=== PATIENT | male | born 1950 | race Caucasian/White ===

== ENCOUNTER 2018-08-15 18:10 | Emergency (ER) | payer MEDICARE, BC ==
[2018-08-15] MEDS ORDERED: Diphtheria,Pertussis(Acell),Tetanus Vaccine 0.5 ML SDV IM ONE (18:53)
--- NOTE | 2018-08-15 19:00 | EDM.PDOC ---
<Karan,Cele - Last Filed: 08/15/18 19:13> ED HPI GENERAL MEDICAL PROBLEM - General Chief Complaint: Laceration Stated Complaint: CUT FINGER Time Seen by Provider: 08/15/18 18:45 Source of Information: Reports: Patient History Limitations: Reports: No Limitations - History of Present Illness INITIAL COMMENTS - FREE TEXT/NARRATIVE: Pt comes in for laceration repair of index finger on right hand. Pt helping with a furnace repair and inadvertency sliced his finger. Unsure of last tetanus and his immunizations are not available in [facility]. Onset: Today, Sudden Onset Date: 08/15/18 Onset Time: 17:30 Duration: Hour(s): Location: Reports: Upper Extremity, Right Quality: Reports: Throbbing Severity: Mild Improves with: Reports: Rest Worsens with: Reports: None Context: Reports: Trauma Associated Symptoms: Reports: No Other Symptoms - Related Data Allergies Allergy/AdvReac Type Severity Reaction Status Date / Time Penicillins Allergy Severe Anaphylactic Verified 08/15/18 18:37 Shock Home Meds: Home Meds Aspirin [Prince Chewable] 81 mg PO DAILY 10/27/13 [History] Carvedilol [Coreg] 6.25 mg PO BID 10/27/13 [History] Flaxseed [Flaxseed Oil] 1,000 mg PO DAILY 10/27/13 [History] Ibuprofen [Wal-Profen] 200 mg PO DAILY 10/27/13 [History] Lisinopril 5 mg PO DAILY 10/27/13 [History] Multivitamin with Minerals [Multiple Vitamin] 1 tab PO DAILY 10/27/13 [History] [place]-3 Fatty Acids/Fish Oil [Fish Oil 1,200 mg Softgel] 1 each PO DAILY [History] Rosuvastatin [Crestor] 5 mg PO DAILY 10/27/13 [History] Past Medical History - Past Health History Medical/Surgical History: Denies Medical/Surgical History HEENT History: Reports: Impaired Vision Cardiovascular History: Reports: Stents Other Cardiovascular History: 2004 Neurological History: Reports: Concussion Dermatologic History: Reports: Melanoma - Infectious Disease History Infectious Disease History: Reports: Chicken Pox, Measles, Mumps - Past Surgical History Head Surgeries/Procedures: Reports: None HEENT Surgical History: Reports: Adenoidectomy, Tonsillectomy Cardiovascular Surgical History: Reports: None GI Surgical History: Reports: Hernia, Inguinal Neurological Surgical History: Reports: None Dermatological Surgical History: Reports: Skin Biopsy Social & Family History - Tobacco Use Smoking Status *Q: Never Smoker Second Hand Smoke Exposure: No - Caffeine Use Caffeine Use: Reports: None - Recreational Drug Use Recreational Drug Use: No ED ROS GENERAL - Review of Systems Review Of Systems: See Below Constitutional: Reports: No Symptoms HEENT: Reports: No Symptoms Respiratory: Reports: No Symptoms Cardiovascular: Reports: No Symptoms Musculoskeletal: Reports: No Symptoms Skin: Reports: No Symptoms, Wound Neurological: Reports: No Symptoms Psychiatric: Reports: No Symptoms ED EXAM, SKIN/RASH Exam: See Below Text/Narrative:: Alert and oriented male with injury to right index finger. Approx 2-3 cm laceration. Pt was able to stop bleeding prior to arrival. Site assessed with Officer and agreement to repair laceration with sutures Exam Limited By: No Limitations General Appearance: Alert, WD/WN Peripheral Pulses: 2+: Radial (L), Radial (R) Extremities: Normal Range of Motion, Normal Capillary Refill, Other (pt with full ROM in right index finger denies numbness or ) Neurological: Alert, Oriented, CN II-XII Intact, Normal Cognition, Normal Reflexes, No Motor/Sensory Deficits Skin: Warm, Dry, Normal Color, Wound/Incision Location, Skin: Upper Extremity, Right ED SKIN PROCEDURES - Laceration/Wound Repair Right Digit - 2nd (Index) Lac/Wound length In cm: 2.5 (cm) Appearance: Clean Distal NVT: Neuro & Vascular Intact, No Tendon Injury Anesthetic Type: Digital Local Anesthesia - Lidocaine (Xylocaine): 1% Plain Local Anesthetic Volume: 2cc Skin Prep: Chlorhexidine (Hibiciens) Saline Irrigation (cc's): 30 Exploration/Debridement/Repair: Wound Explored, In a Bloodless Field, Explored to Base, No Foreign Material Found Closed with: Sutures Suture Size: 3-0 # of Sutures: 5 Suture Type: Prolene Course - Vital Signs Last Recorded V/S: Last Vital Signs Temp 98.0 F 08/15/18 18:39 Pulse 67 08/15/18 18:39 Resp 16 08/15/18 18:39 BP 142/79 H 08/15/18 18:39 Pulse Ox 94 L 08/15/18 18:39 - Orders/Labs/Meds Orders: Active Orders 24 hr Category Date Time Status Vaccines to be Administered [RC] PER UNIT ROUTINE Care 08/15/18 18:53 Active Meds: Medications Discontinued Medications Generic Name Dose Route Start Last Admin Trade Name Ryland PRN Reason Stop Dose Admin Bacitracin 1 dose 08/15/18 19:06 08/15/18 19:27 Bacitracin Oint 1 Gm TOP 08/15/18 19:07 1 dose ONETIME ONE Administration Diphtheria/Tetanus/Acell Pertussis 0.5 ml 08/15/18 18:53 08/15/18 19:10 Adacel IM 08/15/18 18:54 0.5 ml .ONCE ONE Administration Lidocaine HCl 5 ml 08/15/18 18:51 08/15/18 19:08 Xylocaine-Mpf 1% INJECT 08/15/18 18:52 5 ml ONETIME ONE Administration - Re-Assessments/Exams Free Text/Narrative Re-Assessment/Exam: 08/15/18 19:53 Pt able to move extremity without difficulty after sutures in place. Pt has good feeling at the tip. Bacitracin applied to the wound and covered with gauze per nursing staff. Pt instructed to return in 7-10 days for suture removal. Educated to sxs of infection to watch for and report Departure - Departure Disposition: Home, Self-Care 01 Condition: Good Clinical Impression: Laceration, Broken skin - Discharge Information *PRESCRIPTION DRUG MONITORING PROGRAM REVIEWED*: No *COPY OF PRESCRIPTION DRUG MONITORING REPORT IN PATIENT LAN: No Instructions: Laceration Care, Adult, [id number] Referrals: PCP,None [Primary Care Provider] - Forms: ED Department Discharge Additional Instructions: Keep elevated to prevent throbbing and or swelling of finger. Keep covered for the first 24 hours. Return to clinic in 7-10 days for suture removal <Marc Tabor - Last Filed: 08/15/18 20:01> ED EXAM, SKIN/RASH Text/Narrative:: Agree with above exam ED SKIN PROCEDURES - Laceration/Wound Repair Right Digit - 2nd (Index) Sterile Dressing Applied: Nurse Tetanus Status Addressed: Yes Complications: No Departure - Departure Time of Disposition: 20:01 Condition: Good - Assessment/Plan Plan: Assessment Acuity = acute Site and laterality = 2.5 cm laceration right index finger Etiology = secondary to trauma Manifestations = none Location of injury = Home Lab values = none Plan Follow wound care instruction sheet, follow-up with primary care or return to the emergency department for suture removal in 10 days tetanus updated today This note was dictated using [employer] voice recognition software please call with any questions on syntax or grammar.
[2018-08-15] MEDS ORDERED: Bacitracin Oint 1 GM U/D Packet TOP ONE (19:06)
== END 2018-08-15 20:10 | disposition home or self-care (01) ==
LOC: JP.ED 18:10
DX: S61.210A Laceration without foreign body of right index finger without damage to nail, initial encounter (principal); Z23 Encounter for immunization; Z79.82 Long term (current) use of aspirin; Z79.899 Other long term (current) drug therapy; Z98.890 Other specified postprocedural states; Z95.5 Presence of coronary angioplasty implant and graft; Z88.0 Allergy status to penicillin; W26.8XXA Contact with other sharp object(s), not elsewhere classified, initial encounter
CPT/HCPCS: 12001; 90471; 90715; 99282; 99283-25; J2001

== ENCOUNTER 2019-05-12 19:20 | Emergency (ER) | payer MEDICARE, BC ==
--- NOTE | 2019-05-12 19:48 | EDM.PDOC ---
ED HPI GENERAL MEDICAL PROBLEM - General Chief Complaint: Laceration Stated Complaint: HIT IN THE HEAD Time Seen by Provider: 05/12/19 19:40 Source of Information: Reports: Patient, Old Records History Limitations: Reports: No Limitations - History of Present Illness INITIAL COMMENTS - FREE TEXT/NARRATIVE: 68 yo male here with a forehead laceration that resulted from a drill falling out of a deer stand that he was climbing which hit him in that area. No LOC. No PEARSON or dizziness. No neck pain. No nausea. Onset: Today Onset Date: 05/12/19 Onset Time: 15:00 Duration: Hour(s): (5), Constant Location: Reports: Face Quality: Reports: Dull Severity: Mild Improves with: Reports: None Worsens with: Reports: None Context: Reports: Trauma Associated Symptoms: Reports: No Other Symptoms Treatments STORES ASSISTANT: Reports: Dressing(s) Face/Facial Pain Score (Numeric/FACES): 1 - Related Data Allergies Allergy/AdvReac Type Severity Reaction Status Date / Time Penicillins Allergy Severe Anaphylactic Verified 05/12/19 19:40 Shock Home Meds: Home Meds Aspirin [Prince Chewable] 81 mg PO DAILY 10/27/13 [History] Flaxseed [Flaxseed Oil] 1,000 mg PO DAILY 10/27/13 [History] Lisinopril 5 mg PO DAILY 10/27/13 [History] Multivitamin with Minerals [Multiple Vitamin] 1 tab PO DAILY 10/27/13 [History] [place]-3 Fatty Acids/Fish Oil [Fish Oil 1,200 mg Softgel] 1 each PO DAILY [History] Rosuvastatin [Crestor] 5 mg PO DAILY 10/27/13 [History] Carvedilol 1 tab PO BID 05/12/19 [History] Past Medical History - Past Health History Medical/Surgical History: Denies Medical/Surgical History HEENT History: Reports: Impaired Vision Cardiovascular History: Reports: Stents Other Cardiovascular History: 2004 Neurological History: Reports: Concussion Dermatologic History: Reports: Melanoma - Infectious Disease History Infectious Disease History: Reports: Chicken Pox, Measles, Mumps - Past Surgical History Head Surgeries/Procedures: Reports: None HEENT Surgical History: Reports: Adenoidectomy, Tonsillectomy Cardiovascular Surgical History: Reports: None GI Surgical History: Reports: Hernia, Inguinal Neurological Surgical History: Reports: None Dermatological Surgical History: Reports: Skin Biopsy Social & Family History - Caffeine Use Caffeine Use: Reports: None ED ROS GENERAL - Review of Systems Review Of Systems: ROS reveals no pertinent complaints other than HPI. Constitutional: Reports: No Symptoms HEENT: Reports: No Symptoms Skin: Reports: Wound (R mid forehead laceration.) Neurological: Reports: No Symptoms. Denies: Confusion, Dizziness, Headache, Numbness, Trouble Speaking, Difficulty Walking, Weakness, Change in Speech, Gait Disturbance ED EXAM, SKIN/RASH Exam: See Below Exam Limited By: No Limitations General Appearance: Alert, WD/WN, No Apparent Distress Eye Exam: Bilateral Eye: Normal Inspection Ears: Normal External Exam, Normal Canal, Hearing Grossly Normal Nose: Normal Inspection, No Blood Throat/Mouth: Normal Inspection, Normal Lips, Normal Oropharynx, Normal Voice, No Airway Compromise Head: Normocephalic, Facial Tenderness (over forehead lac) Neck: Normal Inspection, Supple, Non-Tender Extremities: Normal Inspection Neurological: Alert, Oriented, CN II-XII Intact, Normal Cognition, No Motor/ Sensory Deficits Psychiatric: Normal Affect, Normal Mood Skin: Warm, Dry, Normal Color, No Rash, Wound/Incision (2 cm partial thickness linear laceration to the R mid forehead.) Location, Skin: Face Characteristics: Linear Associated features: Tenderness. No: Swelling, Induration ED SKIN PROCEDURES - Laceration/Wound Repair Right Middle Forehead Appearance: Subcutaneous, Linear, Clean Distal NVT: Neuro & Vascular Intact Skin Prep: Saline Closed with: Dermabond Lac/Wound length In cm: 2.4 Drain Placement: No Sterile Dressing Applied: None Tetanus Status Addressed: Yes Complications: No Course - Vital Signs Last Recorded V/S: Last Vital Signs Temp 35.8 C 05/12/19 19:41 Pulse 66 05/12/19 19:41 Resp 16 05/12/19 19:41 BP 141/84 H 05/12/19 19:54 Pulse Ox 100 05/12/19 19:41 Departure - Departure Time of Disposition: 20:05 Disposition: Home, Self-Care 01 Condition: Good Clinical Impression: Forehead laceration Qualifiers: Encounter type: initial encounter Qualified Code(s): S01.81XA - Laceration without foreign body of other part of head, initial encounter - Discharge Information *PRESCRIPTION DRUG MONITORING PROGRAM REVIEWED*: No *COPY OF PRESCRIPTION DRUG MONITORING REPORT IN PATIENT LAN: No Referrals: PCP,None [Primary Care Provider] - Forms: ED Department Discharge Additional Instructions: Allow Dermabond to wear off. Acetaminophen as needed for pain relief. Recheck for signs of infection.
== END 2019-05-12 20:15 | disposition home or self-care (01) ==
LOC: JP.ED 19:20
DX: S01.81XA Laceration without foreign body of other part of head, initial encounter (principal); Z88.0 Allergy status to penicillin; Z79.82 Long term (current) use of aspirin; W20.8XXA Other cause of strike by thrown, projected or falling object, initial encounter; Y93.39 Activity, other involving climbing, rappelling and jumping off
CPT/HCPCS: 12011; 99282-25

== ENCOUNTER 2020-04-27 17:00 | Emergency (ER) | payer MEDICARE, BC ==
--- NOTE | 2020-04-27 17:32 | EDM.PDOC ---
ED HPI GENERAL MEDICAL PROBLEM - General Chief Complaint: General Stated Complaint: DIZZY Time Seen by Provider: 04/27/20 17:35 Source of Information: Reports: Patient, Old Records, RN History Limitations: Reports: No Limitations - History of Present Illness INITIAL COMMENTS - FREE TEXT/NARRATIVE: 69 yo male here after a brief dizzy spell that he experienced when he bent over and got up again. He denies vertigo with this. He also has noticed more GALLO recently. No fever. No cough. Had a mild, brief tightness in his chest this afternoon. He tried to call his doctor, but he was already gone for the day. He had an exercise stress test this summer in which he did well per his report. No cardiac hx. Is worried most about his heart. Says his BP is normally well controlled. No calf pain or LE edema. Has not had as much energy lately as usual. Onset: Today (dizziness and chest tightness) Onset Date: 04/27/20 Duration: Minutes:, Resolved Prior to Arrival Location: Reports: Chest Quality: Reports: Other (mild heaviness) Severity: Mild Improves with: Reports: Other (time, was very brief) Worsens with: Reports: Other (unknown) Context: Reports: Other (See HPI) Associated Symptoms: Reports: Other (chest mild sx's and dizziness not at the same time) Treatments MAGNETIC RESONANCE IMAGING COORDINATOR: Reports: Other (see below) (none) - Related Data Allergies Allergy/AdvReac Type Severity Reaction Status Date / Time Penicillins Allergy Severe Anaphylactic Verified 04/27/20 17:56 Shock Home Meds: Home Meds Aspirin [Prince Chewable] 81 mg PO DAILY 10/27/13 [History] Flaxseed [Flaxseed Oil] 1,000 mg PO DAILY 10/27/13 [History] Lisinopril 5 mg PO DAILY 10/27/13 [History] Multivitamin with Minerals [Multiple Vitamin] 1 tab PO DAILY 10/27/13 [History] [place]-3 Fatty Acids/Fish Oil [Fish Oil 1,200 mg Softgel] 1 each PO DAILY 10/27/13 [History] Rosuvastatin [Crestor] 5 mg PO BEDTIME 10/27/13 [History] carvediloL [Carvedilol] 1 tab PO BID 05/12/19 [History] Past Medical History - Past Health History Medical/Surgical History: Denies Medical/Surgical History HEENT History: Reports: Impaired Vision Cardiovascular History: Reports: Stents Other Cardiovascular History: 2004 Neurological History: Reports: Concussion Dermatologic History: Reports: Melanoma - Infectious Disease History Infectious Disease History: Reports: Chicken Pox, Measles, Mumps - Past Surgical History Head Surgeries/Procedures: Reports: None HEENT Surgical History: Reports: Adenoidectomy, Tonsillectomy Cardiovascular Surgical History: Reports: None GI Surgical History: Reports: Hernia, Inguinal Neurological Surgical History: Reports: None Dermatological Surgical History: Reports: Skin Biopsy Social & Family History - Family History Family Medical History: Noncontributory - Caffeine Use Caffeine Use: Reports: None ED ROS GENERAL - Review of Systems Review Of Systems: See Below Constitutional: Reports: No Symptoms HEENT: Reports: No Symptoms Respiratory: Denies: Shortness of Breath, Pleuritic Chest Pain, Cough, Sputum, Hemoptysis Cardiovascular: Reports: Chest Pain (fleeting earlier today), Dyspnea on Exertion, Lightheadedness (when he stood up after bending over). Denies: Blood Pressure Problem, Edema, Palpitations Endocrine: Reports: No Symptoms GI/Abdominal: Reports: No Symptoms : Reports: No Symptoms Musculoskeletal: Reports: No Symptoms Skin: Reports: No Symptoms Neurological: Reports: No Symptoms Psychiatric: Reports: No Symptoms ED EXAM, GENERAL - Physical Exam Exam: See Below Exam Limited By: No Limitations General Appearance: Alert, WD/WN, No Apparent Distress Eye Exam: Bilateral Eye: Normal Inspection Ears: Normal External Exam, Normal Canal, Hearing Grossly Normal, Normal TMs Ear Exam: Bilateral Ear: Auricle Normal, Canal Normal, TM normal Nose: Normal Inspection, No Blood Throat/Mouth: Normal Inspection, Normal Lips, Normal Oropharynx, Normal Voice, No Airway Compromise Head: Atraumatic, Normocephalic Neck: Normal Inspection Respiratory/Chest: No Respiratory Distress, Lungs Clear, Normal Breath Sounds, No Accessory Muscle Use, Chest Non-Tender. No: Respiratory Distress, Decreased Breath Sounds, Crackles, Rales, Rhonchi, Wheezing, Accessory Muscle Use, Retractions, Prolonged Expiration Cardiovascular: Regular Rate, Rhythm, No Edema, No Murmur. No: Tachycardia, Irregularly Irregular GI/Abdominal: Normal Bowel Sounds, Soft, Non-Tender, No Distention Back Exam: Normal Inspection. No: CVA Tenderness (R), CVA Tenderness (L) Extremities: Normal Inspection, Normal Range of Motion, Non-Tender, No Pedal Edema Neurological: Alert, Oriented, CN II-XII Intact, Normal Cognition, No Motor/Sensory Deficits Psychiatric: Normal Affect, Normal Mood Skin Exam: Warm, Dry, Intact, Normal Color, No Rash EKG INTERPRETATION EKG Date: 04/27/20 Time: 17:10 Rhythm: NSR Rate (Beats/Min): 74 F[place]ardo: Normal P-Wave: Present QRS: RBBB ST-T: Normal QT: Normal Comparison: No Change Course - Vital Signs Last Recorded V/S: Last Vital Signs Temp 37.0 C 04/27/20 17:55 Pulse 76 04/27/20 17:55 Resp 14 04/27/20 17:55 BP 128/76 04/27/20 17:55 Pulse Ox 96 04/27/20 17:55 - Orders/Labs/Meds Orders: Active Orders 24 hr Category Date Time Status Cardiac Monitoring [RC] .As Directed Care 04/27/20 17:03 Active EKG Documentation Completion [RC] ASDIRECTED Care 04/27/20 17:03 Active Orthostatic Vital Signs [RC] ASDIRECTED Care 04/27/20 17:48 Active D-DIMER QUANTITATIVE [COAG] Stat Lab 04/27/20 18:03 Received EKG 12 Lead [EK] Routine Ther 04/27/20 17:03 Ordered Labs: Laboratory Tests 04/27/20 04/27/20 04/27/20 Range/Units 17:48 18:03 18:03 WBC 6.7 (4.5-11.0) K/uL RBC 4.87 (4.30-5.90) M/uL Hgb 13.6 (12.0-15.0) g/dL Hct 41.5 (40.0-54.0) % MCV 85 (80-98) fL MCH 28 (27-31) pg MCHC 33 (32-36) % Plt Count 226 (150-400) K/uL Sodium 138 L (140-148) mmol/L Potassium 3.9 (3.6-5.2) mmol/L Chloride 104 (100-108) mmol/L Carbon Dioxide 24 (21-32) mmol/L Anion Gap 13.9 (5.0-14.0) mmol/L BUN 25 H D (7-18) mg/dL Creatinine 1.1 (0.8-1.3) mg/dL Est Cr Clr Drug Dosing 62.18 mL/min Estimated GFR (MDRD) > 60 (>60) Glucose 115 H (74-106) mg/dL Calcium 9.1 (8.5-10.1) mg/dL Troponin I < 0.017 (0.000-0.056) ng/mL TSH, Ultra Sensitive (0.358-3.740) uIU/mL Urine Color Yellow (YELLOW) Urine Appearance Clear (CLEAR) Urine pH 6.0 (5.0-8.0) Ur Specific [place] 1.025 (1.008-1.030) Urine Protein Negative (NEGATIVE) mg/dL Urine Glucose (UA) Negative (NEGATIVE) mg/dL Urine Ketones Negative (NEGATIVE) mg/dL Urine Occult Blood Trace-intact H (NEGATIVE) Urine Nitrite Negative (NEGATIVE) Urine Bilirubin Negative (NEGATIVE) Urine Urobilinogen 0.2 (0.2-1.0) EU/dL Ur Leukocyte Esterase Negative (NEGATIVE) Urine RBC Not seen (0-5) Urine WBC Not seen (0-5) Ur Epithelial Cells Not seen Urine Bacteria Not seen 04/27/20 Range/Units 18:03 WBC (4.5-11.0) K/uL RBC (4.30-5.90) M/uL Hgb (12.0-15.0) g/dL Hct (40.0-54.0) % MCV (80-98) fL MCH (27-31) pg MCHC (32-36) % Plt Count (150-400) K/uL Sodium (140-148) mmol/L Potassium (3.6-5.2) mmol/L Chloride (100-108) mmol/L Carbon Dioxide (21-32) mmol/L Anion Gap (5.0-14.0) mmol/L BUN (7-18) mg/dL Creatinine (0.8-1.3) mg/dL Est Cr Clr Drug Dosing mL/min Estimated GFR (MDRD) (>60) Glucose (74-106) mg/dL Calcium (8.5-10.1) mg/dL Troponin I (0.000-0.056) ng/mL TSH, Ultra Sensitive 1.951 (0.358-3.740) uIU/mL Urine Color (YELLOW) Urine Appearance (CLEAR) Urine pH (5.0-8.0) Ur Specific [place] (1.008-1.030) Urine Protein (NEGATIVE) mg/dL Urine Glucose (UA) (NEGATIVE) mg/dL Urine Ketones (NEGATIVE) mg/dL Urine Occult Blood (NEGATIVE) Urine Nitrite (NEGATIVE) Urine Bilirubin (NEGATIVE) Urine Urobilinogen (0.2-1.0) EU/dL Ur Leukocyte Esterase (NEGATIVE) Urine RBC (0-5) Urine WBC (0-5) Ur Epithelial Cells Urine Bacteria Meds: Medications Discontinued Medications Generic Name Dose Route Start Last Admin Trade Name Freq PRN Reason Stop Dose Admin Carvedilol 3.125 mg 04/27/20 17:33 Coreg PO 04/27/20 17:34 ONETIME ONE Departure - Departure Time of Disposition: 18:31 Disposition: Home, Self-Care 01 Condition: Good Clinical Impression: Mild dehydration - Discharge Information *PRESCRIPTION DRUG MONITORING PROGRAM REVIEWED*: Not Applicable *COPY OF PRESCRIPTION DRUG MONITORING REPORT IN PATIENT LAN: Not Applicable Instructions: Dehydration, Adult, [id number] Referrals: Isaiah Whitman MD [Primary Care Provider] - Forms: ED Department Discharge Additional Instructions: Drink enough fluids so that your urine is light yellow in color. Recheck with your provider. Return here as needed. Sepsis Event Note (ED) - Focused Exam Vital Signs: Vital Signs Temp Pulse Resp BP Pulse Ox 04/27/20 17:55 37.0 C 76 14 128/76 96 04/27/20 17:25 37.0 C 76 14 128/76 96 - My Orders Last 24 Hours: My Active Orders 04/27/20 17:03 Cardiac Monitoring [RC] .As Directed EKG Documentation Completion [RC] ASDIRECTED EKG 12 Lead [EK] Routine 04/27/20 17:48 Orthostatic Vital Signs [RC] ASDIRECTED 04/27/20 18:03 D-DIMER QUANTITATIVE [COAG] Stat - Assessment/Plan Last 24 Hours: My Active Orders 04/27/20 17:03 Cardiac Monitoring [RC] .As Directed EKG Documentation Completion [RC] ASDIRECTED EKG 12 Lead [EK] Routine 04/27/20 17:48 Orthostatic Vital Signs [RC] ASDIRECTED 04/27/20 18:03 D-DIMER QUANTITATIVE [COAG] Stat
[2020-04-27] MEDS ORDERED: Carvedilol 3.125 MG Tab PO ONE (17:33)
== END 2020-04-27 19:16 | disposition home or self-care (01) ==
LOC: JP.ED 17:00
DX: E86.0 Dehydration (principal); R07.89 Other chest pain; Z88.0 Allergy status to penicillin; Z95.5 Presence of coronary angioplasty implant and graft; Z79.82 Long term (current) use of aspirin; Z90.49 Acquired absence of other specified parts of digestive tract
CPT/HCPCS: 36415; 80048; 81001; 82962; 84443; 84484; 85027; 85379; 93005; 93010; 99283; 99284-25

== ENCOUNTER 2020-12-16 09:47 | Emergency (ER) | payer MEDICARE, BC ==
[2020-12-16] MEDS ORDERED: Lactated Ringers 1,000 ML IV ONE (10:12)
[2020-12-16] MEDS ORDERED: Metoprolol Tartrate 5 MG/5 ML SDV IVPUSH ONE ×2 (10:13→10:44)
[2020-12-16] MEDS ORDERED: Diltiazem 25 MG/5 ML SDV IVPUSH ONE (11:06)
--- NOTE | 2020-12-16 11:11 | EDM.PDOC ---
<Nicholas Macedo - Last Filed: 12/16/20 18:28> ED HPI GENERAL MEDICAL PROBLEM - General Chief Complaint: Chest Pain Stated Complaint: TIGHTNESS IN CHEST PLUSE WAS FAST Time Seen by Provider: 12/16/20 10:25 - Related Data Allergies Allergy/AdvReac Type Severity Reaction Status Date / Time Penicillins Allergy Severe Anaphylactic Verified 12/16/20 10:11 Shock atorvastatin [From Lipitor] Allergy Other Verified 12/16/20 10:11 Home Meds: Home Meds Aspirin [Prince Chewable] 81 mg PO DAILY 10/27/13 [History] Flaxseed [Flaxseed Oil] 1,000 mg PO DAILY 10/27/13 [History] Lisinopril 5 mg PO DAILY 10/27/13 [History] Multivitamin with Minerals [Multiple Vitamin] 1 tab PO DAILY 10/27/13 [History] [place]-3 Fatty Acids/Fish Oil [Fish Oil 1,200 mg Softgel] 1 each PO DAILY 10/27/13 [History] Rosuvastatin [Crestor] 5 mg PO BEDTIME 10/27/13 [History] carvediloL [Carvedilol] 1 tab PO BID 05/12/19 [History] Course - Re-Assessments/Exams Free Text/Narrative Re-Assessment/Exam: 12/16/20 18:28 Patient care inherited from Dr. Olson pending a third troponin. This troponin doubled from his previous one, despite the patient remaining pain-free. This was discussed with the hospitalist service and with cardiology in [place], and it was agreed that an acute coronary syndrome was likely evolving. Heparin was started and patient will be transferred to [facility] accepted by Dr. Almaraz. Being a direct admit to the cardiology unit. Departure - Departure Disposition: DC/Tfer to [facility] 02 Clinical Impression: Acute coronary syndrome Referrals: Isaiah Whitman MD [Primary Care Provider] - Forms: ED Department Discharge Care Plan Goals: Patient was transferred to [facility] for further evaluation by cardiology for likely acute coronary syndrome and myocardial injury. <Terell Olson - Last Filed: 12/17/20 17:29> ED HPI GENERAL MEDICAL PROBLEM - General Source of Information: Reports: Patient History Limitations: Reports: No Limitations - History of Present Illness INITIAL COMMENTS - FREE TEXT/NARRATIVE: This is a 70-year-old male planes of concerns of chest discomfort. He does have a history of coronary artery disease, reports stenting approximately 15 years ago. He woke up this morning feeling his normal state of health. He was washing some dishes this morning when he had sudden onset feeling of discomfort in the substernal area of his chest. He describes it as a tightness. He has no associated dyspnea. The pain does not radiate. He reports that the symptoms he was experiencing that led to his stent placement was neck and parascapular pain, different than what he has today. He had no cough. No fevers or chills. No lower extremity swelling. No black or bloody stools. He has otherwise been feeling well Past Medical History - Past Health History Medical/Surgical History: Denies Medical/Surgical History HEENT History: Reports: Impaired Vision Cardiovascular History: Reports: Stents Other Cardiovascular History: 2004 Gastrointestinal History: Reports: None Genitourinary History: Reports: Renal Calculus Musculoskeletal History: Reports: None Neurological History: Reports: Concussion Oncologic (Cancer) History: Reports: Malignant Melanoma Dermatologic History: Reports: Melanoma - Infectious Disease History Infectious Disease History: Reports: Chicken Pox, Measles, Mumps - Past Surgical History Head Surgeries/Procedures: Reports: None HEENT Surgical History: Reports: Adenoidectomy, Tonsillectomy Cardiovascular Surgical History: Reports: None GI Surgical History: Reports: Hernia, Inguinal Male Surgical History: Reports: Lithotripsy ([facility]) Neurological Surgical History: Reports: None Musculoskeletal Surgical History: Reports: Other (See Below) Other Musculoskeletal Surgeries/Procedures:: fusion right foot Oncologic Surgical History: Reports: None Dermatological Surgical History: Reports: Skin Biopsy Social & Family History - Family History Family Medical History: No Pertinent Family History - Tobacco Use Tobacco Use Status *Q: Never Tobacco User Second Hand Smoke Exposure: No - Caffeine Use Caffeine Use: Reports: Soda - Recreational Drug Use Recreational Drug Use: No ED ROS GENERAL - Review of Systems Review Of Systems: See Below Constitutional: Reports: No Symptoms HEENT: Reports: No Symptoms Respiratory: Reports: No Symptoms Cardiovascular: Reports: Chest Pain, Palpitations Endocrine: Reports: No Symptoms GI/Abdominal: Reports: No Symptoms : Reports: No Symptoms Musculoskeletal: Reports: No Symptoms Skin: Reports: No Symptoms Neurological: Reports: No Symptoms Psychiatric: Reports: No Symptoms Hematologic/Lymphatic: Reports: No Symptoms Immunologic: Reports: No Symptoms ED EXAM, GENERAL - Physical Exam Exam: See Below Exam Limited By: No Limitations General Appearance: Alert, No Apparent Distress Ears: Normal External Exam Nose: Normal Inspection Throat/Mouth: Normal Inspection Head: Atraumatic, Normocephalic Neck: Normal Inspection Respiratory/Chest: Lungs Clear Cardiovascular: Tachycardia, Irregularly Irregular GI/Abdominal: Soft, Non-Tender Back Exam: Normal Inspection Extremities: Normal Inspection. No: Pedal Edema Neurological: Alert, Oriented Psychiatric: Normal Affect, Normal Mood Skin Exam: Warm, Dry Course - Vital Signs Last Recorded V/S: Last Vital Signs Temp 36.7 C 12/16/20 10:24 Pulse 62 12/16/20 17:17 Resp 14 12/16/20 17:17 BP 120/67 12/16/20 17:17 Pulse Ox 98 12/16/20 17:17 - Orders/Labs/Meds Labs: Laboratory Tests 12/16/20 12/16/20 12/16/20 Range/Units 10:05 10:05 13:44 WBC 5.0 (4.5-11.0) K/uL RBC 5.30 (4.30-5.90) M/uL Hgb 15.0 (12.0-15.0) g/dL Hct 45.6 (40.0-54.0) % MCV 86 (80-98) fL MCH 28 (27-31) pg MCHC 33 (32-36) % Plt Count 235 (150-400) K/uL Sodium 142 (140-148) mmol/L Potassium 3.8 (3.6-5.2) mmol/L Chloride 104 (100-108) mmol/L Carbon Dioxide 26 (21-32) mmol/L Anion Gap 11.7 (5.0-14.0) mmol/L BUN 17 (7-18) mg/dL Creatinine 1.0 (0.8-1.3) mg/dL Est Cr Clr Drug Dosing 65.18 mL/min Estimated GFR (MDRD) > 60 (>60) Glucose 141 H (74-106) mg/dL Calcium 9.0 (8.5-10.1) mg/dL Magnesium 1.8 (1.8-2.4) mg/dL Total Bilirubin 0.7 (0.2-1.0) mg/dL AST 22 (15-37) U/L ALT 35 (12-78) U/L Alkaline Phosphatase 75 (46-116) U/L Troponin I < 0.017 0.364 H* (0.000-0.056) ng/mL Total Protein 7.4 (6.4-8.2) g/dL Albumin 4.0 (3.4-5.0) g/dL Globulin 3.4 (2.3-3.5) g/dL Albumin/Globulin Ratio 1.2 (1.2-2.2) Lipase 122 (73-393) U/L 12/16/20 Range/Units 15:30 WBC (4.5-11.0) K/uL RBC (4.30-5.90) M/uL Hgb (12.0-15.0) g/dL Hct (40.0-54.0) % MCV (80-98) fL MCH (27-31) pg MCHC (32-36) % Plt Count (150-400) K/uL Sodium (140-148) mmol/L Potassium (3.6-5.2) mmol/L Chloride (100-108) mmol/L Carbon Dioxide (21-32) mmol/L Anion Gap (5.0-14.0) mmol/L BUN (7-18) mg/dL Creatinine (0.8-1.3) mg/dL Est Cr Clr Drug Dosing mL/min Estimated GFR (MDRD) (>60) Glucose (74-106) mg/dL Calcium (8.5-10.1) mg/dL Magnesium (1.8-2.4) mg/dL Total Bilirubin (0.2-1.0) mg/dL AST (15-37) U/L ALT (12-78) U/L Alkaline Phosphatase (46-116) U/L Troponin I 0.770 H* (0.000-0.056) ng/mL Total Protein (6.4-8.2) g/dL Albumin (3.4-5.0) g/dL Globulin (2.3-3.5) g/dL Albumin/Globulin Ratio (1.2-2.2) Lipase (73-393) U/L Meds: Medications Discontinued Medications Generic Name Dose Route Start Last Admin Trade Name Freq PRN Reason Stop Dose Admin Diltiazem HCl 20 mg 12/16/20 11:06 12/16/20 11:31 Diltiazem 25 Mg/5 Ml Sdv IVPUSH 12/16/20 11:07 20 mg ONETIME ONE Administration Heparin Sodium (Porcine) 4,000 units 12/16/20 16:50 12/16/20 17:13 Heparin Sodium 5,000 Units/Ml Vial IVPUSH 12/16/20 16:51 4,000 units ONETIME ONE Administration Lactated Ringer's 1,000 mls @ 999 mls/hr 12/16/20 10:12 12/16/20 10:19 Ringers, Lactated IV 12/16/20 11:12 999 mls/hr BOLUS ONE Administration Heparin Sodium/Dextrose 25,000 units in 500 mls @ 21.772 mls/hr 12/16/20 17:00 12/16/20 17:55 Heparin 25,000 Units In D5w 500 Ml IV 12 units/kg/hr TITRATE JOSUÉ 21.772 mls/hr Administration Protocol 12 UNITS/KG/HR Metoprolol Tartrate 5 mg 12/16/20 10:13 12/16/20 10:20 Metoprolol Tartrate 5 Mg/5 Ml Sdv IVPUSH 12/16/20 10:14 5 mg ONETIME ONE Administration Metoprolol Tartrate 5 mg 12/16/20 10:44 12/16/20 10:48 Metoprolol Tartrate 5 Mg/5 Ml Sdv IVPUSH 12/16/20 10:45 5 mg ONETIME ONE Administration - Re-Assessments/Exams Free Text/Narrative Re-Assessment/Exam: This is a 70-year-old male with history of coronary artery disease who presents to the ED with chest discomfort, found to be in A. fib with RVR with rates in the 160s. Blood pressure was preserved. EKG was immediately obtained and showed A. fib with RVR without any obvious ischemic change. [id number] ultrasound was performed that showed no RV enlargement, no pericardial effusion, ejection fraction was grossly intact. He was given 2 doses of metoprolol IV without any significant change in heart rate, heart rate did improve drastically after administration of 20 mg of dilt iazem. Initially he remained in A. fib around 100 and then converted to sinus rhythm. Repeat EKG after we slowed down his rate again did not demonstrate any ischemic change. Basic labs and troponin obtained, initially unremarkable with a troponin of 0. Perform delta troponin testing approximately 4 hours after the onset of his symptoms this returned elevated at 0.3. Hard to say whether this is demand ischemia versus primary ACS given his history of CAD. We do not have a good reason why he would be in A. fib, so some concern for ischemic insult. Once his heart rate normalized he remained completely chest pain-free. He had already taken an aspirin prior to arrival in the ED. I signed this patient out to a colleague at the end of my clinical shift, plan at that time after discussing with the hospitalist was admission at [facility] if his troponin remained flat versus transfer for further cardiac work-up if it continues to rise given her concern for possible underlying ischemic event that led to his presentation today. 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
[2020-12-16] MEDS ORDERED: Heparin Sodium 5,000 Units/ML Vial IVPUSH ONE (16:50)
[2020-12-16] MEDS ORDERED: Heparin Sodium/D5W 25,000 UNITS/500 ML BAG IV SCH (17:00)
--- NOTE | 2020-12-18 10:08 | CR ---
CHEST: Portable 12/16/2020 at 12:19 PM CLINICAL HISTORY:Chest pain COMPARISON:None FINDINGS: The heart size, pulmonary vascularity and hilar structures are normal. No infiltrate effusion or pneumothorax is seen. There are atherosclerotic changes in the aorta. IMPRESSION: No acute cardiopulmonary process.
== END 2020-12-16 17:58 ==
LOC: JP.ED 09:47
DX: I24.9 Acute ischemic heart disease, unspecified (principal); Z88.0 Allergy status to penicillin; Z88.8 Allergy status to other drugs, medicaments and biological substances; Z79.82 Long term (current) use of aspirin; Z79.899 Other long term (current) drug therapy
CPT/HCPCS: 36415; 71045; 80053; 83690; 83735; 84484; 85027; 96374; 96375; 96376; 99285; J1644; J3490; J7120

== ENCOUNTER 2021-12-25 19:08 | Emergency (ER) | payer MEDICARE, BC ==
[2021-12-25] MEDS ORDERED: Ketorolac 30 MG/ML SDV IM ONE (21:34)
[2021-12-30 14:08] LABS: BABESIA MICROTI IGG <1:10 (Neg:<1:10); BABESIA MICROTI IGM <1:10 (Neg:<1:10)
[2021-12-30 15:09] LABS: HGE IGG TITER Negative (Neg:<1:64); HGE IGM TITER Negative (Neg:<1:20)
== END 2021-12-25 23:57 | disposition home or self-care (01) ==
LOC: JP.ED 19:08
DX: S80.261A Insect bite (nonvenomous), right knee, initial encounter (principal); M25.561 Pain in right knee; M10.9 Gout, unspecified; Z88.0 Allergy status to penicillin; Z88.8 Allergy status to other drugs, medicaments and biological substances; Z79.899 Other long term (current) drug therapy; W57.XXXA Bitten or stung by nonvenomous insect and other nonvenomous arthropods, initial encounter
CPT/HCPCS: 86618; 86666; 86753; 96372; 99283; J1885; 36415

== ENCOUNTER 2022-03-23 17:56 | Emergency (ER) | payer MEDICARE, BC ==
[2022-03-23 19:30] LABS: ESTIMATED GFR 81 mL/min (>60); TROPONIN I HIGH SENSITIVITY 21.2 pg/mL (<=60.3)
[2022-03-23] MEDS ORDERED: Heparin Sodium/D5W 25,000 UNITS/500 ML BAG IV SCH (23:45)
[2022-03-23] MEDS ORDERED: Aspirin 81 MG Tab.Chew PO ONE (23:56)
[2022-03-23] MEDS ORDERED: Heparin Sodium 5,000 Units/ML Vial IVPUSH ONE (23:56)
== END 2022-03-24 01:08 ==
LOC: JP.ED 17:56
DX: R74.8 Abnormal levels of other serum enzymes (principal); I25.10 Atherosclerotic heart disease of native coronary artery without angina pectoris; I10 Essential (primary) hypertension; Z88.0 Allergy status to penicillin; Z88.8 Allergy status to other drugs, medicaments and biological substances; Z79.899 Other long term (current) drug therapy; Z20.822 Contact with and (suspected) exposure to COVID-19
CPT/HCPCS: 36415; 71045; 80053; 84484; 85025; 85610; 85730; 93005; 96374; 96375; 99285; A9270; J1644; U0002

== ENCOUNTER 2023-02-18 09:03 | Emergency (ER) | payer MEDICARE, BC ==
[2023-02-18] MEDS ORDERED: Ondansetron 4 MG/2 ML SDV IVPUSH ONE (09:37)
[2023-02-18] MEDS ORDERED: Ketorolac 30 MG/ML SDV IVPUSH ONE (09:37)
[2023-02-18] MEDS ORDERED: Sodium Chloride 0.9% 1,000 ML IV SCH (09:45)
[2023-02-18 09:50] LABS: HEMATOCRIT 41.6 % (38.4-49.7); HEMOGLOBIN 13.9 g/dL (12.9-16.9); MEAN CORPUSCULAR HEMOGLOBIN 28.9 pg (31.6-35.5); MEAN CORPUSCULAR HGB CONC 33.4 g/dL (31.6-35.5); MEAN CORPUSCULAR VOLUME 86.5 fL (81.4-99.0); RED BLOOD CELL COUNT 4.81 M/uL (4.14-5.76); WHITE BLOOD CELL COUNT,WBC 6.9 K/uL (3.2-11.0)
[2023-02-18 09:57] LABS: APPEARANCE,URINE CLOUDY (CLEAR); BILIRUBIN,URINE NEGATIVE (NEGATIVE); COLOR,URINE YELLOW (YELLOW); GLUCOSE,URINE NEGATIVE (NEGATIVE); KETONES,URINE NEGATIVE (NEGATIVE); LEUKOCYTE ESTERASE,URINE NEGATIVE (NEGATIVE); NITRITE,URINE NEGATIVE (NEGATIVE); OCCULT BLOOD,URINE LARGE (NEGATIVE); PROTEIN,URINE 30 mg/dL (NEGATIVE); UROBILINOGEN,URINE 0.2 EU/dL (0.2-1.0)
[2023-02-18 10:10] LABS: AMORPHOUS SEDIMENT,URINE NOT SEEN; BACTERIA,URINE RARE; EPITHELIAL CELLS,URINE RARE; MUCUS,URINE FEW; RBC,URINE >100 (0-5); WBC,URINE 0-5 (0-5)
[2023-02-18 10:11] LABS: A/G RATIO 1.2 (1.2-2.2); ALANINE AMINOTRANSFERASE,ALT 26 U/L (12-78); ALBUMIN 3.8 g/dL (3.4-5.0); ALKALINE PHOSPHATASE 63 U/L (46-116); ASPARTATE AMNIOTRANSFERASE,AST 21 U/L (15-37); BILIRUBIN TOTAL 0.8 mg/dL (0.2-1.0); BLOOD UREA NITROGEN,BUN 19 mg/dL (7-18); CALCIUM 8.9 mg/dL (8.5-10.1); CARBON DIOXIDE,CO2 30 mmol/L (21-32); CHLORIDE,CL 104 mmol/L (100-108); EST CRCL DRUG DOSING (CG) 63.35 mL/min; ESTIMATED GFR 80 mL/min (>60); GLUCOSE RANDOM 119 mg/dL (74-106); POTASSIUM,K 4.5 mmol/L (3.6-5.2); SODIUM,NA 140 mmol/L (140-148)
[2023-02-18 10:17] LABS: INR 3.5; PROTHROMBIN TIME 32.9 sec (9.2-10.6)
== END 2023-02-18 11:33 | disposition home or self-care (01) ==
LOC: JP.ED 09:03
DX: N13.2 Hydronephrosis with renal and ureteral calculous obstruction (principal); I48.91 Unspecified atrial fibrillation; I10 Essential (primary) hypertension; Z95.5 Presence of coronary angioplasty implant and graft; Z79.02 Long term (current) use of antithrombotics/antiplatelets; Z79.899 Other long term (current) drug therapy; Z88.0 Allergy status to penicillin; Z88.8 Allergy status to other drugs, medicaments and biological substances
CPT/HCPCS: 36415; 74176; 80053; 81001; 83605; 83690; 85027; 85610; 96361; 96374; 96375; 99284; J1885; J2405; J7030

== ENCOUNTER 2025-04-21 06:08 | Emergency (ER) | payer MEDICARE, BC ==
[2025-04-21 07:26] LABS: BASOPHILS ABSOLUTE AUTO 0.03 K/uL (0.00-0.10); BASOPHILS PERCENT AUTO 0.4 % (0.1-1.3); EOSINOPHILS ABSOLUTE AUTO 0.12 K/uL (0.00-0.40); EOSINOPHILS PERCENT AUTO 1.5 % (0.0-5.4); IMMATURE GRAN ABSOLUTE AUTO 0.03 K/uL (0.00-0.23); IMMATURE GRAN PERCENT AUTO 0.4 % (0.0-0.7); LYMPHOCYTES ABSOLUTE AUTO 1.10 K/uL (0.8-3.3); LYMPHOCYTES PERCENT AUTO 14.0 % (11.4-47.7); MONOCYTES ABSOLUTE AUTO 0.55 K/uL (0.20-0.90); MONOCYTES PERCENT AUTO 7.0 % (3.3-12.6); NEUTROPHILS ABSOLUTE AUTO 6.01 K/uL (1.0-7.6); NEUTROPHILS PERCENT AUTO 76.7 % (40.0-78.1); PLATELET COUNT,PLT 209 K/uL (130-375); RED BLOOD CELL COUNT 4.56 M/uL (4.14-5.76); WHITE BLOOD CELL COUNT,WBC 7.8 K/uL (3.2-11.0)
[2025-04-21 07:51] LABS: A/G RATIO 1.2 (1.2-2.2); ALANINE AMINOTRANSFERASE,ALT 32 U/L (12-78); ASPARTATE AMNIOTRANSFERASE,AST 20 U/L (15-37); BILIRUBIN TOTAL 0.7 mg/dL (0.2-1.0); BLOOD UREA NITROGEN,BUN 16 mg/dL (7-18); CARBON DIOXIDE,CO2 28 mmol/L (21-32); CHLORIDE,CL 102 mmol/L (100-108); CREATININE 1.0 mg/dL (0.8-1.3); EST CRCL DRUG DOSING (CG) 63.65 mL/min; ESTIMATED GFR 79 mL/min (>60); GLUCOSE RANDOM 139 mg/dL (74-106); POTASSIUM,K 4.1 mmol/L (3.6-5.2); PROTEIN TOTAL,TP 6.5 g/dL (6.4-8.2); SODIUM,NA 136 mmol/L (140-148)
== END 2025-04-21 08:29 | disposition home or self-care (01) ==
LOC: JP.ED 06:08
DX: I48.91 Unspecified atrial fibrillation (principal); I10 Essential (primary) hypertension; Z88.0 Allergy status to penicillin; Z88.1 Allergy status to other antibiotic agents; Z79.899 Other long term (current) drug therapy; Z79.01 Long term (current) use of anticoagulants; Z95.5 Presence of coronary angioplasty implant and graft
CPT/HCPCS: 36415; 80053; 83735; 84484; 85025; 99285